=== PATIENT | female | born 1935 | race Caucasian/White ===

== ENCOUNTER 2016-12-29 09:06 | Emergency (ER) | payer MEDICARE ==
[~2016-12-29] VITALS: Ht 162.6 cm; Wt 113.6 kg
[~2016-12-29 09:06] MED LIST: AMLO-39 PO; ASPI-956 PO; CETI10CA PO; COZ50 PO; DARI15TA PO; FURO-3 PO; GABA100C PO; MULTI VIT; NOVOLIN 70100 UNIT/1 SQ
[2016-12-29 09:07] VITALS: BP 153/53; PULSE 70; RESP 16; O2SAT 95
--- NOTE | 2016-12-29 09:08 | ED.REPORT ---
HPI-Trauma Minor / Fall Date of Service December 29, 2016 ED Provider: The patient is a 81 year old legally blind female with history of hypertension, coronary artery disease s/p CABG, diabetes mellitus, and congestive heart failure, who was brought to the emergency department by EMS after she had a ground level fall prior to arrival. At this time the patient complains of right hip pain and lower back pain. She did not hit her head or lose consciousness. She denies numbness, tingling, weakness, chest pain, abdominal pain, or upper extremity pain. She is currently living with her son and [id number]. Nursing Notes Stated Complaint: GROUND LEVEL FALL/RIGHT HIP PAIN Chief Complaint: Extremity Trauma Nursing Notes Reviewed: Yes Allergies: Uncoded Allergies: TOPICAL J&J PRODUCTS (Allergy, Intermediate, 07/28/12) Roses (Allergy, Mild, Rash,Itching,, 06/26/13) Scheduled ASPIRIN-Expunged Drug, Do Not Renew! ([facility] ASPIRIN-Expunged Drug, Do Not Long) 81 Mg Tablet.dr 81 MG PO DAILY AmLODIPine-Expunged Drug, Do Not Renew! (AmLODIPine-Expunged Drug, Do Not Renew! ) 5 Mg Tablet 5 MG PO BID HOLD FOR SBP<[] OR HR<[] Cetirizine HCl (Zyrtec) 10 Mg Capsule 10 MG PO HS Darifenacin-Expunged Drug, Do Not Renew! (Enablex-Expunged Drug, Do Not Renew!) 15 Mg Tablet 15 MG PO DAILY Furosemide-Expunged Drug, Do Not Renew! (Furosemide-Expunged Drug, Do Not Renew! ) 40 Mg Tablet 40 MG PO DAILY 80 MG DAILY Gabapentin-Expunged Drug, Do Not Renew! (Neurontin-Expunged Drug, Do Not Renew! ) 100 Mg Capsule 100 MG PO TID Hum Insulin Nph/Reg-Expunged Drug, Do Not Omar (Novolin 49-87-Smfchnfc Drug, Do Not Renew!) 100 Unit/Ml Insuln.pen 20 UNIT SQ BID Losartan-Expunged Drug, Do Not Renew! (Losartan-Expunged Drug, Do Not Renew!) 50 Mg Tablet 50 MG PO DAILY Miscellaneous Medications ([Multi Vit]) General Time Seen by MD: 09:07 Chief Complaint Fall (out of bed) Hx Obtained From: Patient, EMS Arrived By: Ambulance Onset Occurred: Just prior to arrival Symptom Duration: Since onset Caused by: Fall on ground Context: Occurred at: Home injury Location: Back Hip right Quality: Painful Severity: Current: Moderate Severity: Maximum: Severe Recent Healthcare: No recent hospitalization Similar Sx Previous: No Past Medical History Past Medical History Notes: PCP: Dr. Ba Past Medical History Previous hx of secondary cellulitis infection to candidial rash in pannus. Also had identical vesicular rash to forearms one year ago. Symptoms were successfully treated by a zigzag appliquer. Reports: Congestive heart failure, Coronary artery disease, Diabetes mellitus, Hypertension Past Surgical History Carpal tunnel sugery bilateral Reports: CABG, Cholecystectomy Family History n/a Smoking History Never Smoker Social History Currently living with her son and [id number] Alcohol Use: Denies alcohol use Drug Use: Denies drug use Other Social History: Local resident Review of Systems Musculoskeletal: Reports: Back pain, Joint pain, Denies: Extremity pain (upper) Neurologic: Denies: Focal weakness, Numbness Complete sys rev & neg: except as marked. Cardiovascular: Denies: Chest pain GI: Denies: Abdominal pain Physical Exam Initial Vital Signs Vital Signs (First) Date Time Temp Pulse Resp B/P Pulse Ox O2 Delivery O2 Flow Rate FiO2 12/29/16 09:07 36.5 70 16 153/53 95 Room Air Initial VS: Reviewed Head / Eyes: Atraumatic, Normocephalic, PERRL ENT: Mucous membranes moist, Conjunctiva normal, No scleral icterus Respiratory: Breath sounds normal, Clear to auscultation, No respiratory distress Abdomen / GI: Soft, Non-tender, No guarding, No rebound, No distention Lymphatic: No lymphadenopathy Extremities: Vascular intact, Neuro intact, No swelling, No tenderness Skin: Warm, Dry, No cyanosis Neurologic: Alert, Oriented, Nonfocal Psychiatric: Mood/affect normal, Behavior normal, Normal thought content General/Constitutional: Awake, Alert, Cooperative Neck: Atraumatic, Supple, Full range of motion, No swelling, Non-tender, No midline vertebral tend Cardiovascular: Heart rate NL, Regular rhythm Fixed split S2 without a murmur Lower Extremity / Pelvis / MS: Neurologic intact, Vascular intact Pain with minimal internal or external rotation. Lateral hip tenderness to palpation. Interpretation & Diagnostics Lab Results Interpretation Test 12/29/16 09:15 12/29/16 10:10 Urine Color Straw (YELLOW) Urine Appearance Hazy (CLEAR,HAZY) Urine pH 7.0 (5.0-8.0) Urine Specific [place] 1.005 (1.003-1.035) Urine Protein Negativemg/dL (NEG,TRACE) Urine Glucose (UA) Negativemg/dL (NEGATIVE) Urine Ketones Negativemg/dL (NEGATIVE) Urine Occult Blood Trace (NEGATIVE) Urine Nitrite Positive (NEGATIVE) Urine Bilirubin Negative (NEGATIVE) Urine Urobilinogen Normalmg/dL (NORMAL) Urine Leukocyte Esterase Negative (NEGATIVE) Urine RBC 3-10/hpf (0-2) Urine WBC 6-10/hpf (0-5) Urine Epithelial Cells Occasional/hpf (NONE-MOD) Urine Crystals None seen (NONE SEEN) Urine Bacteria Many/hpf (NONE-FEW) Urine Hyaline Casts None/lpf (NONE) Urine Granular Casts None seen (NONE SEEN) Urine Waxy Casts None seen (NONE SEEN) Urine Red Blood Cell Casts None seen (NONE SEEN) Urine White Blood Cell Casts None seen (NONE SEEN) Urine Mucus None seen (None Seen) Urine Trichomonas None seen (NONE SEEN) Urine Yeast None (NONE SEEN) Urinalysis Comment None Urine Culture Reflexed Indicated Hold Urine Received (Received) Hold Brown Top Tube Received (Received) X-Ray Interpretation Xray Interpretation: IMPRESSION: 1. No definite fracture or dislocation. Dictated by: Lon Garza M.D. on 12/29/2016 at 10:23 X-Ray Ordered: Pelvis, Hip right Interpretation / Wet Read by: Interpret - Radiologist Re-Eval/Medical Decision Source of Hx: Old records, EMS Re-Evaluation/Progress : Time of Eval: 11:38 Re-Evaluation/Progress Note: Rechecked the patient. She has good range of motion of her right hip with minimal pain. Discussed results, diagnosis, and plan for road test and discharge with walker. Counseled Regarding: Diagnosis, Lab results, Need for follow-up, When/why to return to ED Discharge & Departure Impression: Primary Impression: Fall Encounter type: initial encounter Qualified Code: W19.XXXA - Unspecified fall, initial encounter Additional Impressions: Contusion of right hip Encounter type: initial encounter Qualified Code: S70.01XA - Contusion of right hip, initial encounter Urinary tract infection Disposition: Home Discharge Condition All VS Reviewed: Yes Condition: Stable Patient Instructions: Fall Prevention for Older Adults (DC), Urinary Tract Infection in Women (ED) Additional Instructions: No fracture was identified today. It appears that you have a urinary tract infection and therefore I recommended Cipro 500 twice daily for a week. Use pain medication as needed for your hip. Start with Tylenol 1000 mg every 6 hours, but if this is insufficient use hydrocodone for a few days. Follow up next week if the symptoms are not much better. Referrals: Denis Ba MD (PCP) Scribe Attestation Portions of this note were transcribed by Kelly Elam. I, Dr. Diaz personally performed the history, physical exam and medical decision-making; I reviewed and confirmed the accuracy of the information in the transcribed note. Signed by: Thea Vanegas, 12/29/2016 at 1230. copies to: Denis Ba MD, Kirk H MD December 29, 2016 09:08 Kelly Elam December 29, 2016 09:12
[2016-12-29] MEDS ORDERED: Ondansetron 2 mg/mL 2 mL Inj IVPUSH PRN (09:30)
[2016-12-29] MEDS ORDERED: HYDROmorphone 0.5 mg/0.5 mL iSecure Syringe IVPUSH PRN (09:30)
[2016-12-29] MEDS ORDERED: Ketorolac 15 mg/mL Inj IVPUSH ONE (09:30)
[2016-12-29 10:04] LABS: APPEARANCE,URINE HAZY (CLEAR,HAZY); COLOR,URINE STRAW (YELLOW); OCCULT BLOOD,URINE TRACE (NEGATIVE); UROBILINOGEN,URINE NORMAL (NORMAL)
--- NOTE | 2016-12-29 10:25 | DRSVH ---
PROCEDURE: X-RAY PELVIS W/LAT HIP (RT) ([id number]) INDICATIONS: fall TECHNIQUE: AP pelvis with frontal and lateral views of the right hip. COMPARISON: None. FINDINGS: Bones: No fractures or dislocations. There is minimal axial joint space narrowing in the hips. Mil d degeneration also noted in the sacroiliac joints. Pelvic ring appears intact. No suspicious bony lesions. Soft tissues: The visualized bowel gas pattern is normal. There is diffuse vascular calcification. IMPRESSION: 1. No definite fracture or dislocation. Dictated by: Lon Garza M.D. on 12/29/2016 at 10:23 Approved by: Lon Garza M.D. on 12/29/2016 at 10:24
[2016-12-29] MEDS ORDERED: HYDR-4003 PO (11:53)
[2016-12-29] MEDS ORDERED: CIPR-231 PO (11:54)
[2016-12-29 12:07] VITALS: BP 122/68; PULSE 88; RESP 16; O2SAT 95
== END 2016-12-29 12:08 | disposition home or self-care (01) ==
LOC: SED 09:06
DX: S70.01XA Contusion of right hip, initial encounter (principal); W01.0XXA Fall on same level from slipping, tripping and stumbling without subsequent striking against object, initial encounter; Y93.89 Activity, other specified; Y92.009 Unspecified place in unspecified non-institutional (private) residence as the place of occurrence of the external cause; Y99.8 Other external cause status; N39.0 Urinary tract infection, site not specified; B96.20 Unspecified Escherichia coli [E. coli] as the cause of diseases classified elsewhere; M54.5 Low back pain; I11.0 Hypertensive heart disease with heart failure; E11.59 Type 2 diabetes mellitus with other circulatory complications; I50.9 Heart failure, unspecified; I25.10 Atherosclerotic heart disease of native coronary artery without angina pectoris; Z95.1 Presence of aortocoronary bypass graft
CPT/HCPCS: 73501; 81000; 87086; 87088; 87186; 93005; 96374; 96375; 99285; J1170; J1885; J2060

== ENCOUNTER 2017-04-19 21:46 | Inpatient (IN) | payer MEDICARE ==
[~2017-04-19] VITALS: Ht 160 cm; Wt 101.8 kg
[~2017-04-19 21:46] MED LIST changes: +CIPR-231 PO; +HYDR-4003 PO
[2017-04-19 21:50] VITALS: BP 98/64; PULSE 71; RESP 20; O2SAT 98
--- NOTE | 2017-04-19 23:02 | ED.REPORT ---
HPI-Dyspnea / Wheezing Date of Service Apr 19, 2017 ED Provider: Mehul Kurtz DO Pt is a 81 year old female with a hx of DM, cardiac stents, and double bypass presenting to the ED complaining of progressively worsening shortness of breath onset yesterday morning. Associated symptoms include a slight cough and slight fever. Additionally, she reports having a UTI recently. She denies dizziness, fever, chills, nausea, or vomiting. Nursing Notes Stated Complaint: VERY SHORT OF BREATH Chief Complaint: Respiratory Complaints Nursing Notes Reviewed: Yes Allergies: Uncoded Allergies: TOPICAL J&J PRODUCTS (Allergy, Intermediate, 07/28/12) Roses (Allergy, Mild, Rash,Itching,, 06/26/13) Scheduled ASPIRIN-Expunged Drug, Do Not Renew! ( [facility] ASPIRIN-Expunged Drug, Do Not Long) 81 Mg Tablet.dr 81 MG PO DAILY AmLODIPine-Expunged Drug, Do Not Renew! (AmLODIPine-Expunged Drug, Do Not Renew! ) 5 Mg Tablet 5 MG PO BID HOLD FOR SBP<[] OR HR<[] Cetirizine HCl (Zyrtec) 10 Mg Capsule 10 MG PO HS Ciprofloxacin (Cipro) 500 Mg Tablet 500 MG PO BID Darifenacin-Expunged Drug, Do Not Renew! (Enablex-Expunged Drug, Do Not Renew!) 15 Mg Tablet 15 MG PO DAILY Furosemide-Expunged Drug, Do Not Renew! (Furosemide-Expunged Drug, Do Not Renew! ) 40 Mg Tablet 40 MG PO DAILY 80 MG DAILY Gabapentin-Expunged Drug, Do Not Renew! (Neurontin-Expunged Drug, Do Not Renew! ) 100 Mg Capsule 100 MG PO TID Hum Insulin Nph/Reg-Expunged Drug, Do Not Omar (Novolin 49-05-[facility] Drug, Do Not Renew!) 100 Unit/Ml Insuln.pen 20 UNIT SQ BID Losartan-Expunged Drug, Do Not Renew! (Losartan-Expunged Drug, Do Not Renew!) 50 Mg Tablet 50 MG PO DAILY Scheduled PRN Hydrocodone-Acetaminophen 5-325 mg (Hydrocodone-Acetaminophen 5-325 mg) 1 Each Tablet 1 TABLET PO Q4H PRN PRN For Pain Miscellaneous Medications ([Multi Vit]) General Time Seen by MD: 23:02 Chief Complaint Shortness of breath Hx Obtained From: Patient Arrived By: Walk-in Sudden in Onset?: Yes Onset Occurred: Yesterday Recent Healthcare: No recent doctor visit, No recent hospitalization Similar Sx Previous: No Past Medical History Past Medical History Notes: PCP: Dr. Ba Past Medical History Previous hx of secondary cellulitis infection to candidial rash in pannus. Also had identical vesicular rash to forearms one year ago. Symptoms were successfully treated by a core driller. Reports: Congestive heart failure, Coronary artery disease, Diabetes mellitus, Hypertension Past Surgical History Carpal tunnel sugery bilateral Reports: CABG, Cholecystectomy Family History n/a Smoking History Never Smoker Social History Currently living with her son and [id number] Alcohol Use: Denies alcohol use Drug Use: Denies drug use Other Social History: Local resident Review of Systems Constitutional: Reports: Fever (slight) Respiratory: Reports: Non-productive cough (slight), Shortness of breath Complete sys rev & neg: except as marked. Male: Reports Dysuria Neurologic: Denies: Dizziness Physical Exam Initial Vital Signs Vital Signs (First) Date Time Temp Pulse Resp B/P Pulse Ox O2 Delivery O2 Flow Rate FiO2 04/19/17 21:50 36.8 71 20 98/64 98 Room Air Initial VS: Reviewed Head / Eyes: Atraumatic, Normocephalic Back: No CVA tenderness Skin: Warm, Dry Neurologic: Alert, Oriented Psychiatric: Mood/affect normal, Behavior normal General/Constitutional: Awake, Alert, Well appearing, Well developed Neck: Atraumatic, Supple, No JVD Resp Distress / Stridor: Positive: Resp distress moderate Cardiovascular: Heart rate NL, Regular rhythm Lower Extremity / Pelvis / MS: Atraumatic 1+ pitting edema, little worse on left side Interpretation & Diagnostics CT PULMONARY ANGIOGRAM: CONCLUSION: 1. No evidence of pulmonary embolism or thoracic aortic dissection. Ectasia of the ascending thoracic aorta. 2. Cardiomegaly with CHF/early pulmonary edema. Mild bilateral pleural effusions. No pneumothorax. 3. Small right thyroid cyst. This report was transmitted to the emergency room at 04/20/2017 - 1:09:34 AM PDT. Lab Results Interpretation Result Diagram: 04/19/17 2310 04/19/17 2310 Test 04/19/17 01:38 04/19/17 23:10 Urine Color Yellow (YELLOW) Urine Appearance Slightly cloudy Urine pH 5.5 (5.0-8.0) Urine Specific [place] 1.010 (1.003-1.035) Urine Protein Tracemg/dL (NEG,TRACE) Urine Glucose (UA) Negativemg/dL (NEGATIVE) Urine Ketones Negativemg/dL (NEGATIVE) Urine Occult Blood Small (NEGATIVE) Urine Nitrite Positive (NEGATIVE) Urine Bilirubin Negative (NEGATIVE) Urine Urobilinogen Normalmg/dL (NORMAL) Urine Leukocyte Esterase Small (NEGATIVE) Urine RBC 0-2/hpf (0-2) Urine WBC 11-50/hpf (0-5) Urine Epithelial Cells Few/hpf (NONE-MOD) Urine Crystals None seen (NONE SEEN) Urine Bacteria Many/hpf (NONE-FEW) Urine Hyaline Casts None/lpf (NONE) Urine Granular Casts None seen (NONE SEEN) Urine Waxy Casts None seen (NONE SEEN) Urine Red Blood Cell Casts None seen (NONE SEEN) Urine White Blood Cell Casts None seen (NONE SEEN) Urine Mucus None seen (None Seen) Urine Trichomonas None seen (NONE SEEN) Urine Yeast None (NONE SEEN) Urinalysis Comment None Urine Culture Reflexed Indicated White Blood Count 8.0th/mm3 (3.8-10.1) Red Blood Count 3.33mil/mm3 (3.90-5.20) Hemoglobin 9.4g/dL (12.0-15.6) Hematocrit 28.9% (35.0-46.0) Mean Corpuscular Volume 86.8fL (81-100) Mean Corpuscular Hemoglobin 28.2pg (27.0-35.0) Mean Corpuscular Hemoglobin Concent 32.5% (32.0-37.0) Red Cell Distribution Width 13.9% (12.3-15.4) Platelet Count 134bil/L (150-400) Neutrophils (%) (Auto) 61.5% (40-74) Lymphocytes (%) (Auto) 26.0% (14-46) Monocytes (%) (Auto) 9.0% (4-12) Eosinophils (%) (Auto) 3.1% (0-5) Basophils (%) (Auto) 0.3% (0-3) D-Dimer 1.01mg/L FEU (<0.50) Sodium Level 135mEq/L (134-144) Potassium Level 4.7mEq/L (3.5-5.2) Chloride Level 98mEq/L (97-108) Carbon Dioxide Level 20mmol/L (18-29) Blood Urea Nitrogen 54mg/dL (8-27) Creatinine 1.35mg/dL (0.57-1.00) Estimat Glomerular Filtration Rate 54mL/min (>59) Glucose Level 156mg/dL (60-99) Calcium Level 9.4mg/dL (8.5-10.1) Total Bilirubin 1.0mg/dL (0.0-1.2) Aspartate Amino Transf (AST/SGOT) 17U/L (0-50) Alanine Aminotransferase (ALT/SGPT) 10U/L (0-32) Alkaline Phosphatase 74U/L (25-165) Troponin T 0.010ug/L (0.0-0.011) Pro-B-Type Natriuretic Peptide 9667pg/mL (0-738) Total Protein 7.3g/dL (6.4-8.4) Albumin 3.7g/dL (3.4-5.0) Procalcitonin 0.07ng/mL (0.00-0.08) ECG Interpretation ECG Interpretation: Rate 70 Atrial premature complex 1st degree AV block No acute ST changes (compared with 12/29/16) NH interval decreased from previous Time: 23:26 Interpreted by: ED physician Normal ECG Interpretation: Normal sinus rhythm X-Ray Chest Interpretation Chest Xray Interpretation: increased pulmonary vascular congestion blunted costochondric angles bilaterally View: Portable, 1 view Interpretation / Wet Read by: Wet read ED physician Re-Eval/Medical Decision Med Decision/Clinical Course 81-year-old female with a history of diabetes, CAD status post bypass, and congestive heart failure with last ejection fraction of 60-65% in 2016, grade 1 diastolic dysfunction presents with increasing shortness of breath over the past 2-3 days. She complains of orthopnea, PND, and dyspnea with exertion to the point it is difficult to even get up from her bed. She was hypoxic here into the low 80s which improved with O2. Her chest x-ray shows pulmonary vascular congestion, her proBNP is elevated near 10,000. Her CT angiogram does not show pulmonary embolus, but does demonstrate cardiomegaly and small effusions. She is chronically on furosemide and notes that it does work well to cause diuresis. Here she was treated with 40 of Lasix IV and Gold catheter was placed this patient is too short of breath to arise from bed. She is slightly more anemic than she has been in the past, however she is fluid overloaded which may be the reason for this. Her anemia also certainly contributes to her hypoxia and shortness of breath. She is admitted for further workup and treatment including an updated echocardiogram. Patient notes that she has been recently treated for UTI with an unknown antibiotic from her PCP after calling in complaining of symptoms. Today she has pyuria so I started her on Rocephin. Re-Evaluation/Progress : Time of Eval: 01:21 Re-Evaluation/Progress Note: Patient rechecked. Plan for Lasix, well as plan to admit. Patient understands and agrees with the plan. All questions answered at this time. Counseled Regarding: Diagnosis, Lab results, Need for admission Discharge & Departure Impression: Primary Impression: Respiratory failure Chronicity: unspecified Respiratory failure complication: hypoxia Qualified Code: J96.91 - Respiratory failure, unspecified with hypoxia Additional Impressions: Anemia Anemia type: unspecified type Qualified Code: D64.9 - Anemia, unspecified Heart failure Heart failure type: unspecified heart failure type Heart failure chronicity: acute on chronic Qualified Code: I50.9 - Heart failure, unspecified Renal insufficiency UTI (urinary tract infection) Urinary tract infection type: acute cystitis Hematuria presence: without hematuria Qualified Code: N30.00 - Acute cystitis without hematuria Hyperglycemia First degree AV block Disposition: ADMITTED TO HOSPITAL Discharge Condition All VS Reviewed: Yes Condition: Stable Referrals: Denis Ba MD (PCP) Thea Attestation Portions of this note were transcribed by Sissy King and Ronni Martinez. I, Dr. Kurtz personally performed the history, physical exam and medical decision -making; I reviewed and confirmed the accuracy of the information in the transcribed note. Signed by: Thea Henson, 04/20/2017 copies to: Denis Ba MD, Gary R DO Apr 19, 2017 23:02 Apr 19, 2017 23:29 Vannessa King Apr 20, 2017 00:47 Vannessa King Apr 20, 2017 00:47
[2017-04-19 23:23] LABS: BASOPHILS % (AUTO) 0.3 % (0-3); EOSINOPHILS % (AUTO) 3.1 % (0-5); Mean Corpuscular Hemoglobin 28.2 pg (27.0-35.0); Mean Corpuscular Volume 86.8 fL (81-100); NEUTROPHILS % (AUTO) 61.5 % (40-74); Platelet Count 134 bil/L (150-400)
[2017-04-19 23:47] VITALS: BP 147/42; PULSE 76; RESP 20; O2SAT 96
[2017-04-20] VITALS (8 sets, daily range): BP systolic 133–159; BP diastolic 61–74; PULSE 71–83; RESP 18–26; O2SAT 96–98
[2017-04-20 00:09] LABS: TROPONIN T 0.01 ug/L (0.0-0.011)
[2017-04-20] MEDS ORDERED: Furosemide 10 mg/mL 4 mL Inj IVPUSH ONE (01:10)
[2017-04-20 01:49] LABS: APPEARANCE,URINE SLIGHTLY CLOUDY (CLEAR,HAZY); COLOR,URINE YELLOW (YELLOW); OCCULT BLOOD,URINE SMALL (NEGATIVE); PH,URINE 5.5 (5.0-8.0); UROBILINOGEN,URINE NORMAL (NORMAL)
[2017-04-20] MEDS ORDERED: cefTRIAXone Inj 1,000 MG in Dextrose 5% Minibag Plus 50 ML IV ONE (02:15)
[2017-04-20] MEDS ORDERED: Alum-Mag Hydrox-Simeth 30 mL Suspension PO PRN (02:30)
[2017-04-20] MEDS ORDERED: Polyethylene Glycol (PEG) 17 Gm Powder PO PRN (02:30)
[2017-04-20] MEDS ORDERED: Ondansetron 2 mg/mL 2 mL Inj IVPUSH PRN (02:30)
[2017-04-20] MEDS ORDERED: Glucose 40% Oral Gel 15 Gm Tube PO PRN (02:35)
--- NOTE | 2017-04-20 02:57 | PCM.HPMED ---
Subjective Date of Service Apr 20, 2017 Primary Provider: Admitting Physician: Brittany Barraza DO Primary Care Physician: Denis Ba MD Attending Physician: Brittany Barraza DO Chief Complaint: SOB History of Present Illness: Patient is a 81 y/o female with past medical history of Diastolic Heart Failure with preserved EF, DMTII insulin requiring, CAD with stents and double bypass, and HTN presenting after two days of progressive shortness of breath that started gradually and has been worsening over the past day. Patient reports slight productive cough with clear sputum starting yesterday. Patient reports orthopnea, increased lower extremity swelling, and fever of 100.5 yesterday. Denies CP, Headache, ABD pain, N/V/D, urinary sxs, vision changes, or hearing changes. Patient takes Lasix 40mg PO daily, Amlodipine, and Losartan, and reports to be compliant on her medications. In the ED, patient was placed on 4L NC O2 due to hypoxia in the mid 80s and has responded to 98%. She was given one dose of 40mg IV Lasix. Review of Systems: Negative unless otherwise noted above. Allergies Uncoded Allergies: TOPICAL J&J PRODUCTS (Allergy, Intermediate, 07/28/12) Roses (Allergy, Mild, Rash,Itching,, 06/26/13) Home Medications Metoprolol Succinate ER 100mg tab daily Amlodipine 5mg PO daily Losartan 50mg PO tablet daily Lantus 15U SubQ HS Furosemide 40mg tablet daily Allopurinol 100mg tablet daily Gabapentin 100mg tablet daily Atorvastatin 40mg tablet daily PMH Diastolic Congestive heart failure with preserved EF Coronary artery disease Diabetes mellitus insulin requiring Hypertension Dyslipidemia Surgical History Carpal tunnel sugery bilateral CABG Cholecystectomy Family History Various Cancers in multiple Family members, otherwise noncontributory Social History Hx Alcohol Use: No Hx Substance Use: No Smoking Status: Never Smoker Living Arrangement: with Family Exam Vital Signs Vital Sign - Last Date Time Temp Pulse Resp B/P Pulse Ox O2 Delivery O2 Flow Rate FiO2 04/19/17 23:47 76 20 147/42 96 Room Air 04/19/17 21:50 36.8 Exam Constitutional: Awake, alert and oriented x3, obese, no acute distress Head: Normocephalic and atraumatic Eyes: pupils equal round and reactive to light, no scleral icterus Mouth: no posterior oropharynx erythema, edentulous Heart: regular rate and rhythm. No murmurs, rubs or gallops, 1+ pitting edema in bilateral LE; no JVD Lungs: Clear to Auscultation, no wheeze, rales, or rhonchi ABD: soft, nontender, no hepatomegaly. bowel sounds present throughout Musculoskeletal: moves all four extremities appropriately Neuro: CN II-XII intact. no focal deficits. Psych: appropriate mood and affect. Lab and Diagnostics Labs Item Value Date Time Red Blood Count 3.33 mil/mm3 L 04/19/172309 Mean Corpuscular Volume 86.8 fL 04/19/172309 Mean Corpuscular Hemoglobin 28.2 pg 04/19/172309 Mean Corpuscular Hemoglobin Concent 32.5 % 04/19/172309 Red Cell Distribution Width 13.9 % 04/19/172309 Neutrophils (%) (Auto) 61.5 % 04/19/172309 Lymphocytes (%) (Auto) 26.0 % 04/19/172309 Monocytes (%) (Auto) 9.0 % 04/19/172309 Eosinophils (%) (Auto) 3.1 % 04/19/172309 Basophils (%) (Auto) 0.3 % 04/19/172309 Estimat Glomerular Filtration Rate 54 mL/min 04/19/172309 Calcium Level 9.4 mg/dL 04/19/172309 Total Bilirubin 1.0 mg/dL 04/19/172309 Aspartate Amino Transf (AST/SGOT) 17 U/L 04/19/172309 Alanine Aminotransferase (ALT/SGPT) 10 U/L 04/19/172309 Alkaline Phosphatase 74 U/L 04/19/172309 Troponin T 0.010 ug/L 04/19/172309 Pro-B-Type Natriuretic Peptide 9667 pg/mL H 04/19/172309 Total Protein 7.3 g/dL 04/19/172309 Albumin 3.7 g/dL 04/19/172309 Procalcitonin 0.07 ng/mL 04/19/172309 D-Dimer 1.01 mg/L FEU H 04/19/172309 Result Diagram: 04/19/17230904/19/172309 Microbiology Urine Culture pending. X-Rays, CTs and MRIs Official CXR read pending Official Chest CT read pending. 12-lead ECG Regular Rate. Prolonged TX interval. Assessment & Plan Patient is a 81 y/o female with past medical history of Diastolic Heart Failure with preserved EF, DMTII insulin requiring, CAD with stents and double bypass, and HTN presenting after two days of progressive shortness of breath that started gradually and has been worsening over the past day. - Acute exacerbation of Chronic Diastolic Congestive Heart Failure, POA, Active , - Patient with history of diastolic heart failure with preserved EF from echo in 2016 and new onset of increasing shortness of breath with evidence of fluid overload on physical exam and radiologic studies - Echo in AM - Lasix 40mg IV daily - Monitor I&Os - Supplemental O2 - Consult cardiology - Case Management consult for home health CHF management. - Acute Hypoxia, POA, Active, Stable - Patient w/ h/o CHF and increasing shortness of breath over the past two days with recent O2 sat in the mid 80s on Room Air. - Continue Supplemental O2 at 4L, titrate as needed. - Treat underlying cardiac cause - Chronic Kidney Disease, Stable - Patient has a history of chronic kidney disease with relative baseline around 1.6. SCr 1.35 on admission - Monitor while diuresing patient. An increase in SCr could be due to cardiorenal syndrome. - Elevated D-dimer, Chronicity unknown, Stable - D-dimer 1.01 on admission, PE studies negative, low threshold for DVT - Monitor clinically - History of Diabetes Mellitus, insulin requiring, Chronic, Stable - patient takes home dose of 15U Lantus HS, continue home dose -Insulin gtt - Continue home dose of Gabapentin for diabetic neuropathy - History of Neuropathy, Chronic, Stable - Continue home dose of Gabapentin - History of CAD, Chronic, Stable - Patient on home dose of Amlodipine and Metoprolol, continue home doses. Patient is admitted under inpatient status expected length of stay greater than 2 midnights due to severity of presenting symptoms, risk of adverse events, and complexity of treatment plan. Patient is DNR/DNI Pain Evaluation: Adequate Pain Control GI Prophylaxis: PPI VTE Prophylaxis: Other (on heparin drip) Resuscitation Status: DNR/DNI Pain Evaluation: Adequate Pain Control GI Prophylaxis: Proton Pump Inhibitor VTE Prophylaxis Indicated: Meets Criteria for Anticoag Therapy VTE Prophylaxis: Sub-Q Heparin (Unfractionated) Resuscitation Status: DNR/DNI:Do Not Resuscitate/Intubate Cam Hall DO Apr 20, 2017 02:57
[2017-04-20] MEDS ORDERED: HYDROcodone-APAP 5-325 mg Tablet PO PRN (04:05)
--- NOTE | 2017-04-20 05:23 | NUR ---
admit note Pt is admitted to room 3004 from ED for CHF and respiratory failure. Pt is A&Ox4. Has moderate SOB with any exertion. Transferred from [facility] to bed with a slide and 2PA. RR 20, slightly labored. 4L O2, sats in high 90s. narayan was placed in ED per pt's request after getting IV lasix and still unable to go the BR or BSC due to SOB. Pt had 950 mL out this shift. Denies pain or discomfort. pt is oriented to room and plan of care; she verbalized understanding.
--- NOTE | 2017-04-20 07:56 | DRSVH ---
PROCEDURE: CT ANGIO CHEST PULMONARY EMBOLISM ([id number]) INDICATIONS: sob TECHNIQUE: After the administration of intravenous contrast, 2 mm thick sections acquired from the pulmonary api isaac to the posterior costophrenic angles. 3-dimensional maximum intensity projection (MIP) coronal a nd sagittal reformats were then acquired through the thorax. For radiation dose reduction, the follo wing was used: automated exposure control, adjustment of mA and/or kV according to patient size. COMPARISON: [facility], CR, XR CHEST 2VW, 04/19/2017, 23:14. FINDINGS: Image quality: Excellent. Pulmonary arteries: Pulmonary arteries are normal in size, and demonstrate no intraluminal filling d efects to suggest central pulmonary embolism. Lungs and pleura: Pulmonary vasculature is prominent. There diffuse increased interstitial markings extending to the pleural surface. There are bilateral right greater than left pleural effusions.. Ce ntral and peripheral airways are patent. Mediastinum: Heart size is enlarged, without pericardial effusion. No mediastinal or hilar adenopat hy. Thoracic aorta is normal in caliber and enhancement. Esophagus is normal in caliber, without hi atal hernia. Bones and chest wall: No suspicious bony lesions. Ribs and thoracic spine appear intact throughout. Thyroid gland reveals an 18 mm nodule inferiorly in the right lobe. No axillary or supraclavicular adenopathy. Abdomen: Visualized upper abdominal solid organs appear normal in the early arterial phase of enhanc ement. IMPRESSION: 1. No evidence for pulmonary embolus. 2. Congestive heart failure. 3. Density, nodule/cyst 18 mm in size inferior aspect of the left lobe of the thyroid. Dictated by: Poncho Leon M.D. on 04/20/2017 at 7:50 this report corresponds to the findings of the preliminary NSR report. Approved by: Poncho Leon M.D. on 04/20/2017 at 7:54
[2017-04-20] MEDS ORDERED: GABA-500 PO (08:30)
[2017-04-20] MEDS ORDERED: Furosemide 10 mg/mL 4 mL Inj IVPUSH SCH ×2 (08:30→16:30)
[2017-04-20] MEDS ORDERED: ASPI-973 PO (08:30)
[2017-04-20] MEDS ORDERED: LOSA50TA37 PO (08:30)
[2017-04-20] MEDS ORDERED: FURO40TA4 PO (08:30)
[2017-04-20] MEDS ORDERED: [UNRECOGNIZED DRUG - REMARK] SQ SCH (08:30)
[2017-04-20] MEDS ORDERED: AMLO5TAB2 PO (08:30)
[2017-04-20] MEDS ORDERED: INSU100I13 SUBQ (08:30)
[2017-04-20] MEDS ORDERED: MULT-1018 PO (08:30)
[2017-04-20] MEDS ORDERED: OXYB5TAB10 PO (08:30)
[2017-04-20] MEDS ORDERED: ZYL100 PO (08:31)
[2017-04-20] MEDS ORDERED: METO-394 PO (08:31)
[2017-04-20] MEDS ORDERED: NITR1PAT64 TRANSDERM (08:34)
--- NOTE | 2017-04-20 08:40 | DRSVH ---
PROCEDURE: X-RAY CHEST, TWO VIEWS ([id number]) INDICATIONS: SHORTNESS OF BREATH FOR 2 DAYS, NO HX OF TECHNIQUE: 2 views of the chest were acquired. COMPARISON: [facility], CT, CT ANGIO CHEST PE, 04/20/2017, 0:43. [facility], CR, CHEST 2VW, 06/04/2013, 13:52. FINDINGS: Surgical changes and devices: Post CABG changes are seen. Lungs and pleura: No pleural effusions or pneumothorax. Lungs are clear. Mediastinum: Mediastinal contours are normal. Heart size is normal. Bones and chest wall: Age-appropriate bony degenerative changes are seen. Accentuated thoracic kyph osis is seen. No suspicious bony abnormalities. Soft tissues appear unremarkable. IMPRESSION: No acute cardiopulmonary process is seen. Postoperative and degenerative changes are seen. Dictated by: Travis Capps M.D. on 04/20/2017 at 8:36 Approved by: Travis Capps M.D. on 04/20/2017 at 8:38
[2017-04-20] MEDS: Tolterodine ER 2 mg ER24 Capsule PO SCH (09:13)
[2017-04-20] MEDS: Heparin 5,000 Unit/mL Inj SUBQ SCH ×2 (09:14→16:48)
[2017-04-20] MEDS: Insulin LISPRO 300 Unit/3 mL Inj SUBQ SCH ×4 (09:14→22:00)
--- NOTE | 2017-04-20 12:07 | NUR ---
Case Management- BRIAN given & explained to pt. Mary RAMACHANDRAN RN
--- NOTE | 2017-04-20 13:23 | DRSVH ---
[facility] [address] [place] [place] [address] Echocardiogram Report Name: LUCIO WILKINS Date : 04/20/2017 Height: 63 in Hospital Exam Location: [facility] Weight: 247 lb Gender: Female BSA: 2.1 m2 : 1935 Age: 81 yrs BP: 134/74 mmHg Reason For Study: Congestive Heart Failure Ordering Physician: Performed By: Shea Segura Referring Physician: Rosaura Ba Interpretation Summary 1. Normal left ventricular size, wall thickness and systolic function. 2. The right ventricle is not optimally visualized but appears at least mildly dilated. The systolic function is normal. 3. Evidence for mitral stenosis (which does not appear severe). Mild insufficiency. Compared to the previous study, the findings appear relatively stable Procedure: A two-dimensional transthoracic echocardiogram with color flow and Doppler was performed. The study quality was technically adequate. Comparison is made with the echocardiogram of 07/06/2016. The heart rate ranged between 73-77 bpm during the study. Left Ventricle: Left ventricular wall thickness is at the upper limits of normal. The left ventricle is normal in size. The ejection fraction is estimated to be 60-65%. Right Ventricle: Not optimally visualized, at least mildly dilated. The right ventricular systolic function is normal. Atria: Moderate to severely dilated left atrium. The right atrium is moderate to severely dilated. No color doppler evidence for an ASD. Mitral Valve: There is moderate to severe mitral annular calcification. There is mild mitral stenosis. The mitral valve mean gradient is 4 mmHg. There is mild mitral regurgitation. Aortic Valve: There is mild aortic valve sclerosis. The aortic valve is trileaflet. The aortic valve opens well. There is no aortic stenosis. There is mild aortic regurgitation. Tricuspid Valve: The tricuspid valve leaflets are thin and pliable. There is a trace or physiologic amount of tricuspid regurgitation. Pulmonary artery pressures cannot be estimated because of the lack of a measurable TR jet velocity. Pulmonic Valve: The pulmonic valve is not well visualized. There is mild pulmonic regurgitation. Great Vessels: The aortic root is normal size. The ascending aorta is normal in size. The aortic arch is normal in size. The IVC is of normal diameter and collapses less than 50% with a sniff. This suggests a right atrial pressure of 8 mm Hg. Pericardium/ Pleura There is no pericardial effusion. There is no pleural effusion. MMode/2D Measurements & Calculations LVIDd: 5.3 cm LVIDs: 3.1 cm LA A2 area: 26.7 cm FS: 40.7 % LA A4 area: 31.1 cm IVSd: 0.88 cm LA length (vol): 6.9 cm LVPWd: 1.1 cm LA vol: 102.2 ml LA vol index: 48.3 ml/m IVC diam: 1.6 cm RA long axis: 6.8 cm LVOT diam: 2.0 cm RA area: 27.1 cm Ao root diam: 3.1 cm RA vol: 91.2 ml asc Aorta Diam: 3.3 cm RA : 43.1 ml/m2 Ao Arch Diam (Prox Trans): 2.2 cm LV egan. diameter/BSA (cm/m^2): 2.5 LV sys. diameter/BSA (cm/m^2): 1.5 TAPSE: 2.4 cm Doppler Measurements & Calculations Ao V2 max: 163.7 cm/sec MV E max juan manuel: 167.2 cm/sec Ao max P.7 mmHg MV A max juan manuel: 121.6 cm/sec Ao mean P.0 mmHg MV P1/2t: 54.5 msec LVOT Max Juan Manuel: 90.7 cm/sec MVA(VTI): 1.2 cm2 ERNST(I,D): 1.8 cm sev ratio: 0.59 MV E/A: 1.4 PA V2 max: 79.2 cm/sec PA mean P.6 mmHg MV V2 mean: 91.3 cm/sec MV P1/2t max juan manuel: 170.9 cm/sec MV mean P.1 mmHg MV V2 VTI: 55.3 cm MVA(P1/2t): 4.0 cm2 MV dec time: 0.19 sec Ao V2 mean: 115.4 cm/sec LV V1 max P.3 mmHg Ao V2 VTI: 36.3 cm LV V1 VTI: 21.4 cm ERNST(V,D): 1.7 cm2 PA V2 mean: 61.7 cm/sec ERNST indexed to BSA (cm^2/m^2): 0.86 Reading Physician:01:23 PM
--- NOTE | 2017-04-20 13:49 | PCM.PNMED ---
Subjective Date of Service Apr 20, 2017 Subjective Some improvement in shortness of breath and pedal edema although not back to her usual self. Exam Vital Signs Vital Sign - Last Date Time Temp Pulse Resp B/P Pulse Ox O2 Delivery O2 Flow Rate FiO2 04/20/17 11:02 83 04/20/17 09:14 Supplement Oxygen 04/20/17 09:02 37.3 24 133/68 97 2.00 Intake and Output 04/19/17 04/19/17 04/20/17 Cumulative From/Thru 15:00 23:00 07:00 04/19/17 21:50 - 04/20/17 05:33 Intake Total 0 ml 0 ml Output Total 1250 ml 1250 ml Balance -1250 ml -1250 ml Intake Oral 0 ml 0 ml Output Urine Total 1250 ml 1250 ml Exam General: Alert and oriented, no acute distress Heart: Regular Lungs: Clear Abdomen: Soft, non-tender Extremities: Trace to 1+ pedal edema, half way up to the knees bilaterally IVs and Medications Medications Reviewed: Medications were reviewed in detail Lab and Diagnostics Result Diagram: 04/19/17230904/19/172309 Microbiology Urine Culture pending. X-Rays, CTs and MRIs Official CXR read pending Official Chest CT read pending. 12-lead ECG Regular Rate. Prolonged SC interval. Assessment & Plan Patient is a 81 y/o female with past medical history of Diastolic Heart Failure with preserved EF, DMTII insulin requiring, CAD with stents and double bypass, and HTN presenting after two days of progressive shortness of breath that started gradually and has been worsening over the past day. - Acute exacerbation of Chronic Diastolic Congestive Heart Failure, POA, Active , - Patient with history of diastolic heart failure with preserved EF from echo in 2016 and new onset of increasing shortness of breath with evidence of fluid overload on physical exam and radiologic studies - Echo today similar to 2016, EF 60-65% - Change Lasix 40mg IV daily to BID - Monitor I&Os and lab - Supplemental O2 - Consult cardiology - Case Management consult for home health CHF management. - Acute Hypoxia, POA, Active, Stable - Patient w/ h/o CHF and increasing shortness of breath over the past two days with recent O2 sat in the mid 80s on Room Air. - Continue Supplemental O2 at 4L, titrate as needed. - Treat underlying cardiac cause - Anemia (Hgb 9.6), unknown if acute or chronic, MCV 86, denies any bleeding - repeat lab now and in am - iron panel - guaiac stool - Possible UTI (Urine WBC 11-50, urine culture pending) - Started on doxycycline Apr 18 after calling into her PCP, no urine obtained - received ceftriaxone IV early this morning - Await urine culture results - History of Diabetes Mellitus, insulin requiring, Chronic, Stable - patient takes home dose of 15U Lantus HS, continue home dose - Lispro sliding scale prn - Continue home dose of Gabapentin for diabetic neuropathy - Chronic Kidney Disease, Stable - Patient has a history of chronic kidney disease with relative baseline around 1.6. SCr 1.35 on admission - Monitor while diuresing patient. - Elevated D-dimer, Chronicity unknown, Stable - D-dimer 1.01 on admission, PE studies negative, low threshold for DVT - Monitor clinically - History of CAD, Chronic, Stable - SBP this am 133 - Patient on home dose of Amlodipine and Metoprolol, continue home doses. Patient is admitted under inpatient status expected length of stay greater than 2 midnights due to severity of presenting symptoms, risk of adverse events, and complexity of treatment plan. Patient is DNR/DNI Pain Evaluation: Adequate Pain Control GI Prophylaxis: PPI VTE Prophylaxis: Other (on heparin sq q8) Resuscitation Status: DNR/DNI GI Prophylaxis: Proton Pump Inhibitor VTE Prophylaxis: Sub-Q Heparin (Unfractionated) Resuscitation Status: DNR/DNI:Do Not Resuscitate/Intubate Neena Woodruff MD Apr 20, 2017 13:49
[2017-04-20 13:51] LABS: Mean Corpuscular Hemoglobin 28.1 pg (27.0-35.0); Mean Corpuscular Volume 86.7 fL (81-100)
[2017-04-20 14:27] LABS: Unsaturated Iron Binding 161.9 ug/dL
--- NOTE | 2017-04-20 15:00 | NUR ---
Social Work-initial assessment/ multidisciplinary rounds: Data:EMR reviewed. Pt is a 81 y/o female who was admitted on 04/20/17 for heart failure per H&P. Pt's insurance is [employer] and PCP Is Denis Ba MD. EMR Reviewed. SW met with pt and friend at bedside, SW role explained. Pt is alert and oriented x3. Pt resides at home with her son and family in [place] where she remains independent with basic ADLS. Pt uses a fww or cane outside of the home and does not drive. Pt has no HH or SNF history. Pt has no longterm care insurance or VA benefits. SW discussed DPOA/advanced directive, pt has not completed this, information provided. Pt states that her family will provide transport home at discharge. No concerns noted around pt's capacity for self care from RN or MD. SW provided pt with discharge planning checklist and encouraged pt to call with any questions,phone number provided on white board in room. No anticipated discharge needs. SW will continue to follow if needs arise. Assessment:pt who is independent at baseline. Plan:Pt to discharge home when medically stable via POV. No anticipated discharge needs. SW will continue to follow if needs arise. ADELE Mendoza Addendum: 04/20/17 at 1505 by JANY LAY SS Amended: Links added.
[2017-04-20] MEDS: Insulin GLARgine 100 Unit/mL Syringe SUBQ SCH (22:17)
[2017-04-21] VITALS (8 sets, daily range): BP systolic 117–164; BP diastolic 57–77; PULSE 75–88; RESP 18–22; O2SAT 94–99
[2017-04-21] MEDS: Heparin 5,000 Unit/mL Inj SUBQ SCH ×3 (00:46→17:26)
[2017-04-21 05:36] LABS: Mean Corpuscular Hemoglobin 27.7 pg (27.0-35.0); Mean Corpuscular Volume 87.5 fL (81-100)
[2017-04-21] MEDS: Insulin LISPRO 300 Unit/3 mL Inj SUBQ SCH ×4 (08:00→22:00)
[2017-04-21] MEDS: Tolterodine ER 2 mg ER24 Capsule PO SCH (08:35)
[2017-04-21] MEDS ORDERED: Nystatin 100,000 Unit/Gm 15 Gm Powder TOPICAL PRN (10:35)
--- NOTE | 2017-04-21 11:24 | NUR ---
02 titration Pt on 2L via NC this AM. CPOX in place, 02 high 90's. At 1105, pt sitting up EOB, 02 sat 96%, denies any SOB/distress. Titrated down to 1L via NC. Upon recheck ~5 minutes later, 02 97%. PT in to see pt, will monitor 02. Goal to titrate to RA as pt does NOT have home 02. Addendum: 04/21/17 at 1254 by MIKAEL CHISHOLM RN Pt up to chair at bedside, titrated down to RA. Denies any SOB/distress. Current sats 94-95%. Pt educated to notify staff if feeling any SOB/distress - pt and dtr report understanding. Addendum: 04/21/17 at 1355 by MIKAEL CHISHOLM RN Pt completed working with PT, amb and attempting to do steps. Pt's 02 remained steady throughout in high 90's.
--- NOTE | 2017-04-21 13:48 | PCM.PNMED ---
Subjective Date of Service Apr 21, 2017 Subjective Shortness of breath resolved but still feeling somewhat weak and not sure she can manage at home Exam Vital Signs Vital Sign - Last Date Time Temp Pulse Resp B/P Pulse Ox O2 Delivery O2 Flow Rate FiO2 04/21/17 09:58 75 04/21/17 09:57 36.7 22 117/57 99 Nasal Cannula 2.00 Intake and Output 04/20/17 04/20/17 04/21/17 Cumulative From/Thru 15:00 23:00 07:00 04/19/17 21:50 - 04/21/17 05:21 Intake Total 925 ml 200 ml 1125 ml Output Total 2275 ml 2300 ml 5825 ml Balance -1350 ml -2100 ml -4700 ml Intake Oral 925 ml 200 ml 1125 ml Output Urine Total 2275 ml 2300 ml 5825 ml # Bowel Movements 0 0 Exam General: Alert and oriented, no acute distress Heart: Regular Lungs: Clear Abdomen: Soft, non-tender Extremities: Trace pedal edema Lab and Diagnostics Result Diagram: 04/21/1751904/21/17 0520 Microbiology Urine Culture pending. X-Rays, CTs and MRIs Official CXR read pending Official Chest CT read pending. 12-lead ECG Regular Rate. Prolonged ME interval. Assessment & Plan Patient is a 81 y/o female with past medical history of Diastolic Heart Failure with preserved EF, DMTII insulin requiring, CAD with stents and double bypass, and HTN presenting after two days of progressive shortness of breath that started gradually and has been worsening over the past day. - Acute exacerbation of Chronic Diastolic Congestive Heart Failure, POA, Active , - Patient with history of diastolic heart failure with preserved EF from echo in 2016 and new onset of increasing shortness of breath with evidence of fluid overload on physical exam and radiologic studies - Echo yesterday similar to 2016, EF 60-65% - Yesterday Changed Lasix 40mg IV daily to BID and has had a net output of 4700 , today changed back to her usual dose of oral Lasix which is 120 mg but will increase from qam to BID - Continue Monitor I&Os - Supplemental O2 no longer needed - still c/o weakness, PT eval done and felt not quite ready for home today but hoping for tomorrow - SBP often 140s and was 160 during the night, will increase Losartan from 50 to 100 mg daily - Acute Hypoxia, POA, Active, Stable - Patient w/ h/o CHF and increasing shortness of breath over the past two days with recent O2 sat in the mid 80s on Room Air. - as above - Anemia (Hgb 9.6), unknown if acute or chronic, MCV 86, denies any bleeding - repeat lab yesterday afternoon and this am is 9.1 so stable - iron panel with all indices low but will give trial of FeSO4 - guaiac stool - ordered but no results yet - Possible UTI (Urine WBC 11-50, urine culture pending) - Started on doxycycline Apr 18 after calling into her PCP, no urine obtained - received ceftriaxone IV early yesterday morning - urine culture prelim today with >10^5 GNB prob ecoli so will start on Amox pending culture results - History of Diabetes Mellitus, insulin requiring, Chronic, Stable - patient takes home dose of 15U Lantus HS, continue home dose - Lispro sliding scale prn, glucose mostly in 100s - Continue Gabapentin for diabetic neuropathy - Chronic Kidney Disease, Stable - Patient has a history of chronic kidney disease with relative baseline around 1.6. SCr 1.35 on admission - Monitor while diuresing patient, this am 1.56 - Elevated D-dimer, Chronicity unknown, Stable - D-dimer 1.01 on admission, PE studies negative, low threshold for DVT - Monitor clinically - History of CAD, Chronic, Stable - Continue home doses of Amlodipine and Metoprolol Patient is admitted under inpatient status expected length of stay greater than 2 midnights due to severity of presenting symptoms, risk of adverse events, and complexity of treatment plan. Patient is DNR/DNI Pain Evaluation: Adequate Pain Control GI Prophylaxis: PPI VTE Prophylaxis: Other (on heparin sq q8) Resuscitation Status: DNR/DNI GI Prophylaxis: Proton Pump Inhibitor VTE Prophylaxis: Sub-Q Heparin (Unfractionated) VTE Mechanical Devices: Venous Foot Pump Resuscitation Status: DNR/DNI:Do Not Resuscitate/Intubate Neena Woodruff MD Apr 21, 2017 13:48
--- NOTE | 2017-04-21 15:38 | NUR ---
Patient seen for assessment of pressure injury to R gluteal. A stage 3 pressure injury is noted, full thickness skin loss, 1.5 cm L x 1.5 cm w x 0.2 cm D, circumferential callus, edges well-adhered, glossy pink wound bed, minimal drainage noted on bedding. Barrier ointment has been ineffective. Blanchable periwound tissue and extending skin all look healthy, pink, and warm. Patient stated that she sleeps in a recliner and wound lines up with IT when HOB is elevated. Wound was cleansed and blotted dry, the covered with small hydrocolloid. Patient was shown how to cut hydrocolloid and given instructions for application. Hydrocolloid can stay in place up to 5 days if patent, otherwise, nursing staff may change PRN. Patient was provided an Ehob overlay that facility is trialing. She was instructed to take this home and use it in her recliner. She stated understanding of all information provided.
--- NOTE | 2017-04-21 16:37 | NUR ---
Social Work-readiness for discharge: Data:EMR reviewed. P tis on day 1 of hospitalization for heart failure per H&P. Pt is not medically stable anticipate 1-2 more days. PT evaluation is pending. SUMANTH received MD order for HH-RN,PT, and CAFETERIA ASSISTANT. SUMANTH spoke with pt and daughter Yojana [phone] regarding HH, HH choice list provided prior. Pt agreeable to HH, no agency preference. SW referred to [facility] and made referral to [facility] for RN, PT, and CAFETERIA ASSISTANT, access given. Daughter requested to speak with SW later in the day to discuss pt's [employer] care needs. Daughter explained pt has been living with her son and daughter in law, but does not get much assistance at home. Daughter is interested in having pt go to Assisted living or having extra help at home. SW explained that these would be private pay. SW provided daughter with Senior Resource guidebook and information about different caregiving agencies. Daughter also states pt does not have much money. SW discussed Medicaid and provided daughter with an application for longer term planning. SW explained that pt has only been in the hospital for one day and that at this time pt would not qualify for SNF, daughter states an understanding. F2F to be completed by . SW will continue to follow. Assessment:Pt to benefit from HH. Plan:Pt to discharge home when medically stable via POV. Referral made to [facility] for RN, PT, and CAFETERIA ASSISTANT. Resources have been provided to pt for [employer] care planning including hiring help at home, assisted living and medicaid application. F2F to be completed by . SW will continue to follow. ADELE Mendoza
[2017-04-21] MEDS: Insulin GLARgine 100 Unit/mL Syringe SUBQ SCH (21:02)
[2017-04-22] VITALS (10 sets, daily range): BP systolic 109–143; BP diastolic 49–79; PULSE 80–94; RESP 16–18; O2SAT 94–100
[2017-04-22] MEDS: Heparin 5,000 Unit/mL Inj SUBQ SCH ×3 (00:59→16:28)
--- NOTE | 2017-04-22 06:05 | NUR ---
Respiratory Patient has denied any SOB. Patient remained on room air until 0500. Patient has been up to the BSC throughout the night. Patient started to desat at 0500 to the low 80's and sustained for several minutes. Patient was started on l L o2 to increase SaO2 greater than 92% while asleep.
[2017-04-22 06:10] LABS: Mean Corpuscular Hemoglobin 27.9 pg (27.0-35.0)
[2017-04-22] MEDS: Insulin LISPRO 300 Unit/3 mL Inj SUBQ SCH ×4 (08:00→22:00)
[2017-04-22] MEDS: Tolterodine ER 2 mg ER24 Capsule PO SCH (09:12)
--- NOTE | 2017-04-22 14:32 | PCM.PNMED ---
Subjective Date of Service Apr 22, 2017 Subjective pt tolerated supine position, good O2sat on RA was able to walk with assistance, only to bathroom pt still feels very weak, but breathing better today, afraid to go home, PT recs SNF daughter seems to consider private pay. still has severe incontinence, worse since busch was discontinued, Exam Vital Signs Vital Sign - Last Date Time Temp Pulse Resp B/P Pulse Ox O2 Delivery O2 Flow Rate FiO2 04/22/17 06:43 37.0 80 18 136/54 95 Nasal Cannula 1.00 Intake and Output 04/21/17 04/21/17 04/22/17 Cumulative From/Thru 15:00 23:00 07:00 04/19/17 21:50 - 04/22/17 00:30 Intake Total 1945 ml 3070 ml Output Total 1450 ml 1975 ml 9250 ml Balance -1450 ml -30 ml -6180 ml Intake Oral 1945 ml 3070 ml Output Urine Total 1450 ml 1975 ml 9250 ml # Bowel Movements 1 1 Exam NAD, comfortably laying down on the bed no JVD, MMM, no LAD RRR, nl s1, s2 no mrg bibasilar crackles, no accessory m use S,ND,NT,normoactive BS+ warm, no edema, pulses 2/2 IVs and Medications Medications Reviewed: Medications were reviewed in detail Lab and Diagnostics Result Diagram: 04/22/17 0507 04/22/17 0507 Microbiology Urine Culture pending. X-Rays, CTs and MRIs Official CXR read pending Official Chest CT read pending. 12-lead ECG Regular Rate. Prolonged RI interval. Assessment & Plan Patient is a 81 y/o female with past medical history of Diastolic Heart Failure with preserved EF, DMTII insulin requiring, CAD with stents and double bypass, and HTN presenting after two days of progressive shortness of breath that started gradually and has been worsening over the past day. acute dx - Acute exacerbation of Chronic Diastolic Congestive Heart Failure, POA, Active , Patient with history of diastolic heart failure with preserved EF from echo in 2015 and new onset of increasing shortness of breath with evidence of fluid overload on physical exam and radiologic studies. repeat Echo 04/20 showed similar to 2016, EF 60-65%. on 04/20 Changed Lasix 40mg IV daily to BID and has had a net output of 4700, then switched to Lasix 120mg bid, pt still responding well, - continue lasix 120mg PO bid, Continue Monitor I&Os - Supplemental O2 no longer needed - BP better controlled with Losartan from 50 to 100 mg daily -replete electrolytes as needed #generalized weakness, POA, persistent, likely multifactorial:ADHF, UTI, DM, at baseline using walker, #cystitis, UA+, UCX showed E.coli sx showed increasing urinary incontinence although pt is on diuretics. - s/p doxycycline Apr 18- by PCP, ceftriaxone, Amoxacillin, finish it tomorrow for 5D course chronic, stable, resolved #Acute Hypoxia respiratory failure due to ADHF, POA, resolved with improved volume status #Anemia (Hgb 9.6), unknown if acute or chronic, MCV 86, denies any bleeding, h/ h remained stable, continue trial of FeSO4 # History of Diabetes Mellitus, insulin requiring, Chronic, Stable - patient takes home dose of 15U Lantus HS, continue home dose - Lispro sliding scale prn, glucose mostly in 100s - Continue Gabapentin for diabetic neuropathy - Chronic Kidney Disease, Stable - Patient has a history of chronic kidney disease with relative baseline around 1.6. SCr 1.35 on admission - Monitor while diuresing patient, this am 1.56 - Elevated D-dimer, Chronicity unknown, Stable - D-dimer 1.01 on admission, PE studies negative, low threshold for DVT - Monitor clinically - History of CAD, Chronic, Stable - Continue home doses of Amlodipine and Metoprolol dispo: tomorrow SNF given persistent weakness, no good family support. Patient is DNR/DNI Pain Evaluation: Adequate Pain Control GI Prophylaxis: PPI VTE Prophylaxis: Other (on heparin sq q8) Resuscitation Status: DNR/DNI GI Prophylaxis: Proton Pump Inhibitor VTE Prophylaxis: Sub-Q Heparin (Unfractionated) VTE Mechanical Devices: Venous Foot Pump Resuscitation Status: DNR/DNI:Do Not Resuscitate/Intubate Time spent 35 minutes Radha Ye MD Apr 22, 2017 07:44
--- NOTE | 2017-04-22 15:28 | NUR ---
NUTRITION ASSESSMENT: ASSESS: 81 YO female admitted for heart failure and shortness of breath. PMHx: CHF, CAD, DM, HTN, dyslipidemia. LABS: Reviewed. BUN 58, Cr 1.41, Alb 3.7 MEDS: Reviewed. GI: BM x 1 (04/21) SKIN: Stage II PI on R gluteal per wound care note. CURRENT WT: 112.1 kg. IBW: 52.3 kg. Adj BW: 67.2 kg. DIET: Heart Healthy, Diabetic. PO 100%. EST. NEEDS (WOUNDS/OBESITY): 2520-1227 kcals (25-35 kcals/kg Adj BW), 80-120 g protein (1.2-1.8 g/kg Adj BW) NUTRITION DIAGNOSIS: 1.) Increased nutrient needs related to increased demand for nutrients as evidenced by current wound. NUTRITION INTERVENTION: 1.) Will add sonia + diet spirte BID (B/D trays) to promote wound healing. MONITOR / EVAL: PO intake, labs, wounds, nutritional status. Follow per moderate nutritional risk guidelines.
--- NOTE | 2017-04-22 16:45 | NUR ---
Social Work: Continued Discharge Planning / Multidisciplinary Rounds Data & Assessment: EMR reviewed. Patient is on day 2 of hospitalization for heart failure and respiratory failure per H&P. Patient was discussed in morning rounds. Patient has been evaluated by PT and recommendation has been made for SNF. has placed SW consult regarding SNF. SW met with patient and family who was at bedside. SW provided patient with a SNF list. Patient and family have agreed to [facility] for rehab. SUMANTH has provided [facility] with access and patient's information is under review with SNF. SUMANTH spoke with MD and was informed that patient will be medically stable to DC to SNF tomorrow. SW will continue to follow for additional needs. Plan: Patient will be medically stable for discharge tomorrow. Patient and family are in agreement with [facility] for rehab. SW is awaiting decision from [facility]. SW will continue to follow for additional needs. ADELE Joe
--- NOTE | 2017-04-22 19:15 | NUR ---
Change of Care Took over care around 1600. Remainder of shift uneventful. No c/o pain/sob. Family at the bedside.
[2017-04-22] MEDS: Insulin GLARgine 100 Unit/mL Syringe SUBQ SCH (22:52)
[2017-04-23] MEDS: Heparin 5,000 Unit/mL Inj SUBQ SCH ×2 (01:17→08:27)
[2017-04-23 04:57] VITALS: PULSE 76
[2017-04-23 05:40] VITALS: BP 122/52; PULSE 85; RESP 18; O2SAT 94
--- NOTE | 2017-04-23 06:11 | NUR ---
Respiratory Patient reports overall breathing improved from admit with decreased EUCEDA. RA SpO2 high 90's while awake at rest but once asleep SpO2 noted to drop into mid-high 80's with suspected IRVIN. 2L NC applied while sleeping and CASKET TRIMMER for monitoring.
[2017-04-23 06:46] LABS: BASOPHILS % (AUTO) 0.3 % (0-3); EOSINOPHILS % (AUTO) 6.1 % (0-5); MONOCYTES % (AUTO) 12.6 % (4-12); Mean Corpuscular Hemoglobin 27.2 pg (27.0-35.0); Mean Corpuscular Volume 87.1 fL (81-100); NEUTROPHILS % (AUTO) 43.2 % (40-74); Platelet Count 155 bil/L (150-400)
[2017-04-23 06:54] LABS: Magnesium 2.1 mg/dL (1.6-2.6)
[2017-04-23 08:00] VITALS: PULSE 95
[2017-04-23] MEDS: Insulin LISPRO 300 Unit/3 mL Inj SUBQ SCH ×2 (08:00→12:00)
[2017-04-23] MEDS: Tolterodine ER 2 mg ER24 Capsule PO SCH (08:23)
[2017-04-23] MEDS ORDERED: FERR-74 PO (08:42)
--- NOTE | 2017-04-23 08:45 | PCM.DIMED ---
Discharge Instructions Date of Service Apr 23, 2017 Dates of Hospitalization Apr 20, 2017 at 02:41 Discharge Diagnosis Discharge Diagnosis acute dx Acute Hypoxia respiratory failure due to ADHF Acute exacerbation of Chronic Diastolic Congestive Heart Failure, generalized weakness, likely multifactorial:ADHF, UTI, DM cystitis, chronic dx Anemia (Hgb 9.6), unknown if acute or chronic, Diabetes Mellitus, insulin requiring, CAD HTN Medication Instructions Additional med instructions Please continue to take iron pill, started given your anemia. Diet Discharge Diet: Low fat, Low Sodium, Heart Healthy Activity Discharge Activity: No restrictions Call your provider Call your provider for: Shortness of breath, Chest pain Patient Instructions Patient Instructions You were hospitalized with difficulty of breathing, likely due to 'heart failure '. Your condition greatly improved with removing water by iv medication. Given your persistent weakness, you are discharged to [facility] facility to [facility] your strength Please follow up with your primary doctor in one week Follow-up Provider: Denis Ba MD Follow-up with PCP in: 1 week Radha Ye MD Apr 23, 2017 08:45
--- NOTE | 2017-04-23 09:18 | NUR ---
DETENTION TRANSFER : Called and spoke with Alexx at [facility] and he is reviewing and working on make room moves to accommodate today's discharges. Updated DIESEL ENGINE ASSEMBLER Addendum: 04/23/17 at 1125 by ELENA QUINONES CM Faxed orders to [facility] and place copy in the chart, patient will be transported via wheelchair van arranged by [facility] @ 1330. Updated DIESEL ENGINE ASSEMBLER and CHUNG Addendum: 04/23/17 at 1332 by ELENA QUINONES CM Spoke with [facility] and they can not pick patient up until 1600. Updated ADELE and CHUNG
[2017-04-23 10:00] VITALS: BP 126/68; PULSE 77; RESP 18; O2SAT 93
--- NOTE | 2017-04-23 12:32 | NUR ---
Social Work: Discharge / Multidisciplinary Rounds Data & Assessment: EMR reviewed. Patient is on day 3 of hospitalization for heart failure and respiratory failure per H&P. Patient was discussed in morning rounds. No concerns were noted by MD or staff. Patient has been accepted to [facility] for rehab. Patient has been deemed medically stable for discharge today per MD. SW met with patient and daughter at bedside to discuss discharge plan. Patient and daughter are in agreement with discharging today to SNF. Transportation has been confirmed with [facility] and a pickup has been scheduled for 1330. Patient has no additional needs at this time. Plan: Patient will discharge to [facility] today. Transportation has been confirmed for 1330. Family has been informed of discharge arrangements and are in agreement. Patient has no additional needs at this time. ADELE Joe
--- NOTE | 2017-04-23 12:42 | PCM.DC.MED ---
Discharge Summary Date of Service Apr 23, 2017 Dates of Hospitalization Date of Hospital Admission Apr 20, 2017 at 02:41 Date of Discharge: Apr 23, 2017 Providers: Admitting Physician: Brittany Barraza DO Primary Care Physician: Denis Ba MD Attending Physician: Pinky Onofre MD Diagnosis at Time of Discharge Diagnosis at Time of Discharge acute dx Acute Hypoxia respiratory failure due to ADHF Acute exacerbation of Chronic Diastolic Congestive Heart Failure, generalized weakness, likely multifactorial:ADHF, UTI, DM cystitis, chronic dx Anemia (Hgb 9.6), unknown if acute or chronic, Diabetes Mellitus, insulin requiring, CAD HTN Procedures XRay, CTs & MRIs Official CXR read pending Official Chest CT read pending. ECG 12 Lead Regular Rate. Prolonged MI interval. Brief History HPI obtained by on 04/20 Patient is a 81 y/o female with past medical history of Diastolic Heart Failure with preserved EF, DMTII insulin requiring, CAD with stents and double bypass, and HTN presenting after two days of progressive shortness of breath that started gradually and has been worsening over the past day. Patient reports slight productive cough with clear sputum starting yesterday. Patient reports orthopnea, increased lower extremity swelling, and fever of 100.5 yesterday. Denies CP, Headache, ABD pain, N/V/D, urinary sxs, vision changes, or hearing changes. Patient takes Lasix 40mg PO daily, Amlodipine, and Losartan, and reports to be compliant on her medications. In the ED, patient was placed on 4L NC O2 due to hypoxia in the mid 80s and has responded to 98%. She was given one dose of 40mg IV Lasix. Hospital Course Patient is a 81 y/o female with past medical history of Diastolic Heart Failure with preserved EF, DMTII insulin requiring, CAD with stents and double bypass, and HTN presenting after two days of progressive shortness of breath that started gradually and has been worsening over the past day. pt underwent brief course of diuresis, symptoms were greatly improved, didn't require O2 on d/c. Repeat echo was similar to previous one with normal EF, It was thought to be from acute HFpEF. pt was treated for E.coli UTI, likely cystitis, finished abx course. Given generalized weakness, unsafe home environment, pt was discharged to SNF. acute dx - Acute exacerbation of Chronic Diastolic Congestive Heart Failure, POA, Active , Patient with history of diastolic heart failure with preserved EF from echo in 2016 and new onset of increasing shortness of breath with evidence of fluid overload on physical exam and radiologic studies. repeat Echo 04/20 showed similar to 2016, EF 60-65%. on 04/20 Changed Lasix 40mg IV daily to BID and has had a net output of 4700, then switched to Lasix 120mg bid, pt still responding well, - continue lasix 120mg PO bid, Continue Monitor I&Os - Supplemental O2 no longer needed - BP better controlled with Losartan from 50 to 100 mg daily -replete electrolytes as needed #generalized weakness, POA, persistent, likely multifactorial:ADHF, UTI, DM, at baseline using walker, #cystitis, UA+, UCX showed E.coli sx showed increasing urinary incontinence although pt is on diuretics. - s/p doxycycline Apr 18 by PCP, ceftriaxone, Amoxacillin, finish it tomorrow for 5D course chronic, stable, resolved #Acute Hypoxia respiratory failure due to ADHF, POA, resolved with improved volume status #Anemia (Hgb 9.6), unknown if acute or chronic, MCV 86, denies any bleeding, h/ h remained stable, continue trial of FeSO4 # History of Diabetes Mellitus, insulin requiring, Chronic, Stable - patient takes home dose of 15U Lantus HS, continue home dose - Lispro sliding scale prn, glucose mostly in 100s - Continue Gabapentin for diabetic neuropathy - Chronic Kidney Disease, Stable - Patient has a history of chronic kidney disease with relative baseline around 1.6. SCr 1.35 on admission - Monitor while diuresing patient, this am 1.56 - Elevated D-dimer, Chronicity unknown, Stable - D-dimer 1.01 on admission, PE studies negative, low threshold for DVT - Monitor clinically - History of CAD, Chronic, Stable - Continue home doses of Amlodipine and Metoprolol dispo: tomorrow SNF given persistent weakness, no good family support. Patient is DNR/DNI Pain Evaluation: Adequate Pain Control GI Prophylaxis: PPI VTE Prophylaxis: Other (on heparin sq q8) Resuscitation Status: DNR/DNI Exam Vital Signs (Last) Date Time Temp Pulse Resp B/P Pulse Ox O2 Delivery O2 Flow Rate FiO2 04/23/17 10:00 37.1 77 18 126/68 93 Room Air 04/22/17 18:13 1.00 Exam pt was examined on the day of d/c Test 04/19/17 01:38 04/19/17 23:10 04/20/17 13:45 04/23/17 05:30 Urine Color Yellow (YELLOW) Urine Appearance Slightly cloudy Urine pH 5.5 (5.0-8.0) Urine Specific [place] 1.010 (1.003-1.035) Urine Protein Tracemg/dL (NEG,TRACE) Urine Glucose (UA) Negativemg/dL (NEGATIVE) Urine Ketones Negativemg/dL (NEGATIVE) Urine Occult Blood Small (NEGATIVE) Urine Nitrite Positive (NEGATIVE) Urine Bilirubin Negative (NEGATIVE) Urine Urobilinogen Normalmg/dL (NORMAL) Urine Leukocyte Esterase Small (NEGATIVE) Urine RBC 0-2/hpf (0-2) Urine WBC 11-50/hpf (0-5) Urine Epithelial Cells Few/hpf (NONE-MOD) Urine Crystals None seen (NONE SEEN) Urine Bacteria Many/hpf (NONE-FEW) Urine Hyaline Casts None/lpf (NONE) Urine Granular Casts None seen (NONE SEEN) Urine Waxy Casts None seen (NONE SEEN) Urine Red Blood Cell Casts None seen (NONE SEEN) Urine White Blood Cell Casts None seen (NONE SEEN) Urine Mucus None seen (None Seen) Urine Trichomonas None seen (NONE SEEN) Urine Yeast None (NONE SEEN) Urinalysis Comment None Urine Culture Reflexed Indicated D-Dimer 1.01mg/L FEU (<0.50) Troponin T 0.010ug/L (0.0-0.011) Pro-B-Type Natriuretic Peptide 9667pg/mL (0-738) Procalcitonin 0.07ng/mL (0.00-0.08) Iron Level 18ug/dL (35-150) Total Iron Binding Capacity 180ug/dL (250-450) Percent Iron Saturation 10%sat (15-50) Unsaturated Iron Binding 161.9ug/dL White Blood Count 6.0th/mm3 (3.8-10.1) Red Blood Count 3.42mil/mm3 (3.90-5.20) Hemoglobin 9.3g/dL (12.0-15.6) Hematocrit 29.8% (35.0-46.0) Mean Corpuscular Volume 87.1fL (81-100) Mean Corpuscular Hemoglobin 27.2pg (27.0-35.0) Mean Corpuscular Hemoglobin Concent 31.2% (32.0-37.0) Red Cell Distribution Width 13.7% (12.3-15.4) Platelet Count 155bil/L (150-400) Neutrophils (%) (Auto) 43.2% (40-74) Lymphocytes (%) (Auto) 37.6% (14-46) Monocytes (%) (Auto) 12.6% (4-12) Eosinophils (%) (Auto) 6.1% (0-5) Basophils (%) (Auto) 0.3% (0-3) Sodium Level 144mEq/L (134-144) Potassium Level 4.0mEq/L (3.5-5.2) Chloride Level 99mEq/L (97-108) Carbon Dioxide Level 29mmol/L (18-29) Blood Urea Nitrogen 64mg/dL (8-27) Creatinine 1.77mg/dL (0.57-1.00) Estimat Glomerular Filtration Rate 40mL/min (>59) Glucose Level 73mg/dL (60-99) Calcium Level 8.8mg/dL (8.5-10.1) Magnesium Level 2.1mg/dL (1.6-2.6) Total Bilirubin 0.4mg/dL (0.0-1.2) Aspartate Amino Transf (AST/SGOT) 16U/L (0-50) Alanine Aminotransferase (ALT/SGPT) 9U/L (0-32) Alkaline Phosphatase 68U/L (25-165) Total Protein 6.2g/dL (6.4-8.4) Albumin 3.1g/dL (3.4-5.0) Microbiology Results Urine Culture pending. Discharge Medications Discharge Medications Allopurinol (Allopurinol) 100 Mg Tablet 100 MG PO DAILY (Reported) Amlodipine (Amlodipine) 5 Mg Tablet 5 MG PO BID (Reported) Aspirin (Aspirin) 81 Mg Tablet 81 MG PO DAILY (Reported) Ferrous Sulfate (Feosol) 325 Mg Tablet 325 MG PO DAILYWM Prescribed by: PINKY ONOFRE MD Furosemide (Furosemide) 40 Mg Tablet 120 MG PO QAM (Reported) Gabapentin (Gabapentin) 100 Mg Capsule 100 MG PO TID (Reported) Insulin Glargine (Lantus U100 Solostar Insulin Pen) 100 Unit/1 Ml Insuln.pen 15 UNIT SUBQ HS (Reported) Losartan Potassium (Losartan Potassium) 50 Mg Tablet 50 MG PO QAM (Reported) Metoprolol Succinate ER (Metoprolol Succinate ER) 100 Mg Tab.er.24h 100 MG PO DAILY (Reported) Multivitamin (Multi Vitamin Daily) 1 Each Tablet 1 TAB PO DAILY (Reported) Oxybutynin Chloride (Oxybutynin Chloride) 5 Mg Tablet 5 MG PO BID (Reported) As needed Nitroglycerin 0.4 mg/hr Patch (Nitroglycerin 0.4 mg/hr Patch) 1 Each Patch 1 PATCH TRANSDERM PRN SOB and tireness (Reported) Remove in 8 hours. Do not keep patch on skin overnight. Additional med instructions Please continue to take iron pill, started given your anemia. Followup Plan Discharge Diet: Low fat, Low Sodium, Heart Healthy Discharge Activity: No restrictions Patient Instructions You were hospitalized with difficulty of breathing, likely due to 'heart failure '. Your condition greatly improved with removing water by iv medication. Given your persistent weakness, you are discharged to [facility] facility to increase your strength Please follow up with your primary doctor in one week Follow-up Provider: Denis Ba MD Follow-up with PCP in: 1 week Pinky Onofre MD Apr 23, 2017 12:42
--- NOTE | 2017-04-23 16:13 | NUR ---
DISCHARGE Patient discharged to [facility] at 1608, off floor in wheelchair accompanied by RN and [facility] transport staff. Vitals stable, denies pain and in no apparent distress. Report called to Ingrid, nurse at [facility]. Paperwork packet accompanies patient. All belongings returned, IV discontinued intact.
== END 2017-04-23 16:05 | DRG 291 ==
LOC: SED 21:46 → MPC 04-20 02:41
PROVIDERS: ADMIT Internal Medicine; ATTEND Internal Medicine
DX: I50.33 Acute on chronic diastolic (congestive) heart failure (principal); J96.01 Acute respiratory failure with hypoxia; L89.313 Pressure ulcer of right buttock, stage 3; Z68.41 Body mass index [BMI] 40.0-44.9, adult; N30.00 Acute cystitis without hematuria; E66.9 Obesity, unspecified; Z95.5 Presence of coronary angioplasty implant and graft; Z95.1 Presence of aortocoronary bypass graft; Z79.4 Long term (current) use of insulin; Z79.82 Long term (current) use of aspirin; N18.9 Chronic kidney disease, unspecified; E11.9 Type 2 diabetes mellitus without complications; G58.9 Mononeuropathy, unspecified; I25.10 Atherosclerotic heart disease of native coronary artery without angina pectoris; Z66 Do not resuscitate; B96.20 Unspecified Escherichia coli [E. coli] as the cause of diseases classified elsewhere